=== PATIENT | male | born 1930 | race Caucasian/White ===

== ENCOUNTER 2018-05-28 14:58 | Emergency (ER) | payer OTHER ==
[~2018-05-28 14:58] MED LIST: KEFLEX500 M1 PO
[2018-05-28 15:42] LABS: PT 11.5 SEC (9.4-12.5); PTT 29 SEC (25-37)
--- NOTE | 2018-05-28 15:42 | ED GENERAL ADULT ---
History of Present Illness General Chief Complaint: General Adult Stated Complaint: SENT BY DR FOR ABNORMAL EKG Source: patient Exam Limitations: no limitations Vital Signs & Intake/Output Vital Signs & Intake/Output Vital Signs Date Time Temp Pulse Resp B/P B/P Pulse O2 O2 Flow FiO2 Mean Ox Delivery Rate 05/28 1906 97.5 50 16 171/73 97 Room Air 05/28 1650 98.7 50 16 133/61 96 Room Air 05/28 1613 Room Air 05/28 1504 97.3 58 16 160/69 97 Room Air Allergies Coded Allergies: No Known Allergies (07/05/17) Reconcile Medications Cephalexin (Keflex) 500 MG CAPSULE 1 CAP PO 4 TIMES/DAY INFECTION PREVENTION Cephalexin (Keflex) 500 MG CAPSULE 1 CAP PO 4 TIMES/DAY infection prevention Triage Note: 87M REPORTS LIGHTHEADEDNESS SINCE NOON TODAY. DENIES HEADACHE OR DIZZINESS. -N/V/D. ASYMPTOMATIC 21 POINT DECREASE CHANGE IN SBP DURING ORTHOS STANDING. HX CARDIAC BYPASS; DENIES CP/SOB/PALPITATIONS OR CHANGES IN VISION Triage Nurses Notes Reviewed? yes Onset: Gradual Duration: day(s): Timing: recent history Injury Environment: home Severity: moderate HPI: 87-year-old male with history of diabetes, hypertension, coronary artery disease status post CABG sent in by primary care doctor for abnormal EKG. Patient states that he went to his primary care doctors for further evaluation of ongoing healing ingrown toenail. Patient states that on the way to his doctor's office he felt lightheaded. Symptoms resolved gradually on their own. Patient states that yesterday while he was at rest he felt substernal chest pain. Patient states that this pain resolves on its own as well, pain lasted for minutes.. Patient sees negative notcher, Dr. Pickens, last saw his doctor about one month ago. Patient currently feels in his usual state of health. He denies headache, dizziness, vomiting, fevers, chills, sycnope. (Josephine CLEMONS,Danette Kearns) Past History Travel History Traveled to [place] past 21 day No Medical History Any Pertinent Medical History? see below for history Neurological: NONE EENT: NONE Cardiovascular: hypertension, CARDIAC BY PASS Respiratory: NONE Gastrointestinal: NONE Hepatic: NONE Renal: NONE Musculoskeletal: NONE Psychiatric: NONE Endocrine: diabetes Tetanus Vaccine: 06/30/16 Surgical History Surgical History: CABG Psychosocial History What is your primary language Lithuanian Tobacco Use: Never used Family History Hx Contributory? No (Danette Claudio) Review of Systems Review of Systems Constitutional: Reports: see HPI. EENTM: Reports: no symptoms. Respiratory: Reports: no symptoms. Cardiovascular: Reports: see HPI. GI: Reports: no symptoms. Genitourinary: Reports: no symptoms. Musculoskeletal: Reports: no symptoms. Skin: Reports: no symptoms. Neurological/Psychological: Reports: no symptoms. Hematologic/Endocrine: Reports: no symptoms. Immunologic/Allergic: Reports: no symptoms. All Other Systems: Reviewed and Negative (Danette Claudio) Physical Exam Physical Exam General Appearance: well developed/nourished, no apparent distress, alert, awake Head: atraumatic, normal appearance Eyes: Bilateral: normal appearance. Ears, Nose, Throat: hearing grossly normal Neck: normal inspection, supple, full range of motion Respiratory: normal breath sounds, no respiratory distress, lungs clear Cardiovascular: normal peripheral pulses, bradycardia, irregular rhythm Peripheral Pulses: 2+ radial (R), 2+ radial (L) Gastrointestinal: normal bowel sounds, soft, non-tender, no organomegaly Back: normal inspection, normal range of motion Extremities: normal inspection, normal range of motion Neurologic/Psych: awake, alert, oriented x 3 Skin: intact, normal color, warm/dry Core Measures ACS in differential dx? Yes CVA/TIA Diagnosis: No Sepsis Present: No Sepsis Focused Exam Completed? No (Danette Claudio) Progress Differential Diagnoses I considered the following diagnoses in my evaluation of the patient: [Heart block, atrial fibrillation, acute coronary syndrome, electrolyte abnormality, dehydration] Plan of Care: Orders Procedure Date/time Status TROPONIN LEVEL 05/28 1815 Complete EKG 05/28 1815 Active Telemetry/Joinery Machinist 05/28 1506 Active THYROID STIMULATING HORMONE 05/28 1506 Complete TROPONIN LEVEL 05/28 1506 Complete PARTIAL THROMBOPLASTIN TIME 05/28 1506 Complete PROTHROMBIN TIME 05/28 1506 Complete MAGNESIUM 05/28 1506 Complete COMPREHENSIVE METABOLIC PANEL 05/28 1506 Complete CBC WITHOUT DIFFERENTIAL 05/28 1506 Complete EKG 05/28 1506 Active Laboratory Tests 05/28/18 1901: Troponin I < 0.01 05/28/18 1515: Anion Gap 12, Estimated GFR 57 L, BUN/Creatinine Ratio 25.0, Glucose 103 H, Calcium 9.7, Magnesium 1.6, Total Bilirubin 1.1, AST 24, ALT 26, Alkaline Phosphatase 39, Troponin I < 0.01, Total Protein 7.4, Albumin 4.2, Globulin 3.2, Albumin/Globulin Ratio 1.3, TSH 0.939, PT 11.5, INR 1.05, APTT 29, CBC w Diff NO MAN DIFF REQ, RBC 4.65 L, MCV 92.1, MCH 30.7, MCHC 33.3, RDW 13.8, MPV 9.3, Gran % 51.0, Lymphocytes % 33.6, Monocytes % 12.3 H, Eosinophils % 2.8, Basophils % 0.3, Absolute Granulocytes 4.5, Absolute Lymphocytes 3.0, Absolute Monocytes 1.1 H, Absolute Eosinophils 0.2, Absolute Basophils 0 Patient with mild hyperkalemia treated with slow IV fluid rehydration. Troponins are negative, chest x-ray clear. Repeat EKG shows bradycardia, heart rate 39, irregular pauses between QRS complexes without detection of definite P waves. Question for atrial fibrillation versus heart block. Cardiology consult pending. Pacer pads placed. Spoke with negative notcher, Dr. Goldberg - camillational rhythm is tending down based on these EKG changes. Based on the patient's EKG she states it is likely he would require a pacemaker, given that the patient is asymptomatic at this time pacemaker could be placed over the weekend. After discussing these findings with the patient he states that he would not like to have a pacemaker placed here at [facility], he wishes to be transferred to [place]. Spoke with Y axis regarding this patient - Send to [facility] ED. Accepted by negative notcher Dr. Parker. [phone]. Consent forms completed. Patient stable at time of discharge. Dr. Muñoz is in agreement with the plan of care. Diagnostic Imaging: Viewed by Me: Radiology Read. Discussed w/RAD: Radiology Read. Radiology Impression: PATIENT: MANUEL ANDERSEN PRESENT AGE: 87 PATIENT ACCOUNT NO: [id number] : 31 LOCATION: [facility] ORDERING PHYSICIAN: Robin CLEMONS SERVICE DATE: 05/28/18 EXAM TYPE : RAD - XRY-PORTABLE CHEST XRAY EXAMINATION: XR PORTABLE CHEST CLINICAL INFORMATION: Dizziness, abnormal EKG. COMPARISON: Chest 02/13/2018. TECHNIQUE: Portable AP 85 degrees upright view of the chest was obtained. FINDINGS: The heart is normal in size. There is no congestion or focal consolidation. Sternal wires are intact. There are stable degenerative changes in both shoulders. IMPRESSION: No acute cardiopulmonary process. DICTATED BY: Sheldon Tena MD DATE/TIME DICTATED:05/28/181550 RACK WORKER:SERA DATE/TIME TRANSCRIBED:05/28/181550 CONFIDENTIAL, DO NOT COPY WITHOUT APPROPRIATE AUTHORIZATION. <Electronically signed in Other Vendor System> SIGNED BY: Sheldon Tena MD 05/28/18 1600 Initial ED EKG: junctional rhythm, rate 58, RBBB, nonspecific ST changes Prior EKG: changed (02/14/18) Repeat EKG: changed (rate 39, question for block) (Danette Claudio) Departure Departure Disposition: OTHER [facility] (ACUTE) Condition: Stable Clinical Impression Primary Impression: Junctional escape rhythm Secondary Impressions: Heart block Referrals: Gianna ADRIAN,Baljit Greenfield (PCP/Family) Departure Forms: Customer Survey General Discharge Information (Danette Claudio) PA/FUR TAILOR Co-Sign Statement Statement: ED Attending supervision documentation- [x] I saw and evaluated the patient. I have also reviewed all the pertinent lab results and diagnostic results. I agree with the findings and the plan of care as documented in the PA's/FUR TAILOR's documentation. [] I have reviewed the ED Record and agree with the PA's/FUR TAILOR's documentation. [] Additions or exceptions (if any) to the PAs/FUR TAILOR's note and plan are summarized below: [] (Red Muñoz DO) Critical Care Note Critical Care Note Critical Care Time: 30-74 min (Danette Claudio) ED Attending Observation Initial Observation Note: I have seen and personally examined MANUEL ANDERSEN on 05/28/18 at 1859. I agree with the current emergency department documentation. The disposition (admission or discharge) is uncertain at this time, he needs a period of observation for the following reason(s): The ED Nurse caring for this patient has been personally informed as to what the patient is being observed for. (Danette Claudio)
[2018-05-28 15:52] LABS: ABSOLUTE BASOPHIL COUNT 0 /CUMM (0.0-0.2); ABSOLUTE EOSINOPHIL COUNT 0.2 /CUMM (0.0-0.7); ABSOLUTE GRANULOCYTE CT 4.5 /CUMM (1.4-6.5); ABSOLUTE MONOCYTE COUNT 1.1 /CUMM (0.10-0.60); BASOPHIL % 0.3 % (0.0-2.0); EOSINOPHIL % 2.8 % (0-5); HEMATOCRIT 42.8 % (42-52); MEAN CORPUSCULAR HGB 30.7 PG (27.0-31.0); MEAN CORPUSCULAR HGB CONC 33.3 G/DL (33.0-37.0); MEAN CORPUSCULAR VOLUME 92.1 FL (80.0-94.0); MEAN PLATELET VOLUME 9.3 FL (7.4-10.4); PLATELET COUNT 184 /CUMM (130-400); RBC DISTRIBUTION WIDTH 13.8 % (11.5-14.5); RED BLOOD CELL CT 4.65 /CUMM (4.70-6.10); WHITE BLOOD CELL COUNT 8.9 /CUMM (4.8-10.8)
--- NOTE | 2018-05-28 16:00 | RADIOLOGY REPORT ---
EXAMINATION: XR PORTABLE CHEST CLINICAL INFORMATION: Dizziness, abnormal EKG. COMPARISON: Chest 02/13/2018. TECHNIQUE: Portable AP 85 degrees upright view of the chest was obtained. FINDINGS: The heart is normal in size. There is no congestion or focal consolidation. Sternal wires are intact. There are stable degenerative changes in both shoulders. IMPRESSION: No acute cardiopulmonary process.
[2018-05-28 19:06] VITALS: BP 171/73
== END 2018-05-28 19:49 | disposition short-term general hospital (02) ==
LOC: ERH 14:58
PROVIDERS: Physician Assistant Medical
DX: I45.9 Conduction disorder, unspecified (principal); R07.89 Other chest pain
CPT/HCPCS: 71045; 93005; 93010